=== PATIENT | female | born 1990 | race Caucasian/White ===

== ENCOUNTER 2017-08-30 17:44 | Emergency (ER) | payer BC, OTHER ==
[2017-08-30] MEDS ORDERED: Omeprazole CAP* 20 MG PO ONE (21:42)
--- NOTE | 2017-08-30 21:45 | UC ---
Abdominal Pain Female HPI - HPI Summary HPI Summary: 3 to 4 week history of epigastric discomfort with awareness of heartburn and occasional dysphagia. Getting marginal relief from use of an antacid. Began vomiting about 5 minutes post meals, worse if she has a high fluid intake with her meal. Drinks Monster caffeine and taurine drinks regularly. Occasional alcohol but none recently. Symptoms began after a flare of her asthma, when she began use of nasal fluticasone. No history of ulcer. No weight loss. Normal stools. - History of Current Complaint Chief Complaint: UCGI Stated Complaint: CHEST PAIN,VOMITING Time Seen by Provider: 08/30/17 21:25 Hx Obtained From: Patient Onset/Duration: Gradual Onset, Lasting Weeks - 3-4 Timing: Intermittent Episodes Lasting: - hours Severity Initially: Moderate Severity Currently: Moderate Pain Intensity: 7 Location: Epigastric Radiates to: Other - bilateral lower rib cage azul. Character: Aching, Burning Aggravating Factor(s): Food Alleviating Factor(s): Antacids Associated Signs and Symptoms: Positive: Nausea, Vomiting Allergies/Adverse Reactions: Allergies Allergy/AdvReac Type Severity Reaction Status Date / Time amoxicillin [From Augmentin] Allergy Diarrhea Verified 08/30/17 17:55 azithromycin [From Zithromax] Allergy See Comment Verified 08/30/17 17:55 clavulanic acid Allergy Diarrhea Verified 08/30/17 17:55 [From Augmentin] lactose Allergy GI Upset Verified 08/30/17 17:55 latex Allergy Rash Verified 08/30/17 17:55 vinyl gloves Allergy Rash Uncoded 08/30/17 17:55 Home Medications: Home Medications ARIPiprazole TAB* [Abilify TAB*] 10 mg PO DAILY 08/30/17 [History Confirmed ] Albuterol inh POWDER (NF) [Proair Respiclick] 2 puff IN Q6H PRN 08/30/17 [ History Confirmed 08/30/17] Cetirizine* [ZyrTEC 10 MG TAB*] 10 mg PO DAILY 08/30/17 [History Confirmed 08/30] Ethinyl Estradiol/Drospirenone [Kacey 28 Tablet] 1 each PO DAILY 08/30/17 [ History Confirmed 08/30/17] Fluticasone/Vilanterol [Breo Ellipta 200-25 Mcg INH] 1 each IH DAILY 08/30/17 [ History Confirmed 08/30/17] Fluvoxamine (NF) [Luvox (NF)] 300 mg PO DAILY 08/30/17 [History Confirmed ] LORazepam TAB(*) [Ativan 1 MG TAB (*)] 1 mg PO TID PRN 08/30/17 [History Confirmed 08/30/17] Levothyroxine TAB* [Synthroid TAB*] 150 mcg PO DAILY 08/30/17 [History Confirmed 08/30/17] OXcarbazepine TAB(*) [Trileptal 300 mg TAB(*)] 600 mg PO BID 08/30/17 [History Confirmed 08/30/17] Thyroid,Pork [[place] Thyroid] 1 tab PO DAILY 08/30/17 [History Confirmed ] PMH/Surg Hx/FS Hx/Imm Hx Previously Healthy: No - bipolar disorder, OCD, panic disorder. Endocrine History: Hypothyroidism, Other - obesity Other Endocrine History: obesity Respiratory History: Asthma Psychological History: Anxiety, Bipolar Disorder - Surgical History Surgical History: None - Family History Known Family History: Positive: Unknown - does not know father's side; mother is living and well - Social History Occupation: Employed Full-time - [employer] Lives: Alone Alcohol Use: Rare Substance Use Type: None Smoking Status (MU): Never Smoked Tobacco Review of Systems Constitutional: Negative Skin: Negative Eyes: Negative ENT: Negative Respiratory: Other - asthma, with 3x per week use of albuterol. Worse with living in an apartment where she gets smoke exposure from another tenant. Cardiovascular: Negative Gastrointestinal: Abdominal Pain, Vomiting Genitourinary: Negative Motor: Negative Neurovascular: Negative Musculoskeletal: Negative Neurological: Negative Psychological: Anxious Is Patient Immunocompromised?: No All Other Systems Reviewed And Are Negative: Yes Physical Exam Triage Information Reviewed: Yes Appearance: Pain Distress - none at time of exam, Obese, Other: - mildly anxious Vital Signs: Initial Vital Signs Temp 98.1 F 08/30/17 17:45 Pulse 102 08/30/17 17:45 Resp 14 08/30/17 17:45 BP 138/91 08/30/17 17:45 Pulse Ox 98 08/30/17 17:45 Eyes: Positive: Conjunctiva Clear ENT: Positive: Pharynx normal Neck: Positive: Supple, Nontender Respiratory: Positive: Lungs clear, Normal breath sounds Cardiovascular: Positive: RRR, No Murmur Abdomen Description: Positive: No Organomegaly, Soft. Negative: CVA Tenderness (R), CVA Tenderness (L), Guarding Musculoskeletal Exam: Normal Neurological: Positive: Alert, Muscle Tone Normal Psychological Exam: Other - mildly anxious, but appropriate, with good eye contact. Skin Exam: Normal Abd Pain Female Course/Dx - Course Course Of Treatment: omeprrazole for suspected gastritis, possible ulcer. - Differential Dx/Diagnosis Provider Diagnoses: gastritis Discharge - Sign-Out/Discharge Documenting (check all that apply): Discharge - Discharge Plan Condition: Stable Disposition: HOME Prescriptions: Omeprazole CAP* [Prilosec CAP* 20 MG] 20 mg PO DAILY #30 cap. Patient Education Materials: Gastritis (ED) Referrals: Luzma Carranza MD [Primary Care Provider] - Additional Instructions: Please follow up with your primary care doctor in 2 weeks. If you are not responding to the medication, further testing might be needed. Ensure that you take the omeprazole about 20 to 30 minutes before a meal. - Billing Disposition and Condition Condition: STABLE Disposition: HOME
[2017-08-30 21:58] VITALS: BP 143/95
== END 2017-08-30 21:58 | disposition home or self-care (01) ==
LOC: UCCORT 17:44
DX: K29.70 Gastritis, unspecified, without bleeding (principal); Z88.1 Allergy status to other antibiotic agents; Z91.040 Latex allergy status; Z91.011 Allergy to milk products; Z88.0 Allergy status to penicillin; Z88.8 Allergy status to other drugs, medicaments and biological substances; Z91.09 Other allergy status, other than to drugs and biological substances; F31.9 Bipolar disorder, unspecified; F42.9 Obsessive-compulsive disorder, unspecified; F41.0 Panic disorder [episodic paroxysmal anxiety]; E03.9 Hypothyroidism, unspecified; J45.909 Unspecified asthma, uncomplicated
CPT/HCPCS: 99202; A9270-GY; G0463

== ENCOUNTER 2018-02-02 12:16 | Emergency (ER) | payer BC, OTHER ==
[2018-02-02 14:11] VITALS: BP 141/88
--- NOTE | 2018-02-02 14:20 | UC ---
Throat Pain/Nasal Alejo HPI - HPI Summary HPI Summary: Pt c/o sinus congestion, pressure, pain and fever X 7 days. Pt now c/o bloody mucus and worsening malaise. - History of Current Complaint Chief Complaint: UCGeneralIllness Stated Complaint: SINUSES Time Seen by Provider: 02/02/18 14:08 Hx Obtained From: Patient Hx Last Menstrual Period: 01/28/18 Onset/Duration: Gradual Onset, Lasting Days, Still Present Severity: Moderate Pain Intensity: 7 Cough: Nonproductive Associated Signs & Symptoms: Positive: Sinus Discomfort, Nasal Discharge, Fever Related History: Seasonal Allergies - Epiglottits Risk Factors Epiglottis Risk Factors: Negative - Allergies/Home Medications Allergies/Adverse Reactions: Allergies Allergy/AdvReac Type Severity Reaction Status Date / Time amoxicillin [From Augmentin] Allergy Diarrhea Verified 02/02/18 14:11 azithromycin [From Zithromax] Allergy See Comment Verified 02/02/18 14:11 clavulanic acid Allergy Diarrhea Verified 02/02/18 14:11 [From Augmentin] lactose Allergy GI Upset Verified 02/02/18 14:11 latex Allergy Rash Verified 02/02/18 14:11 vinyl gloves Allergy Rash Uncoded 02/02/18 14:11 PMH/Surg Hx/FS Hx/Imm Hx Previously Healthy: Yes - Surgical History Surgical History: Yes Surgery Procedure, Year, and Place: gallbladder removed 10/25/17 - Family History Known Family History: Positive: Unknown - does not know father's side; mother is living and well - Social History Occupation: Employed Full-time Lives: With Family Alcohol Use: Rare Substance Use Type: None Smoking Status (MU): Never Smoked Tobacco Have You Smoked in the Last Year: No Review of Systems Constitutional: Fever, Chills, Fatigue Skin: Negative Eyes: Negative ENT: Sinus Congestion, Sinus Pain/Tenderness Respiratory: Cough Cardiovascular: Negative Gastrointestinal: Negative Genitourinary: Dysuria Motor: Negative Neurovascular: Negative Musculoskeletal: Myalgia Neurological: Headache Psychological: Negative Is Patient Immunocompromised?: No All Other Systems Reviewed And Are Negative: Yes Physical Exam Triage Information Reviewed: Yes Appearance: Ill-Appearing Vital Signs: Initial Vital Signs Temp 97.6 F 02/02/18 14:06 Pulse 88 02/02/18 14:06 Resp 18 02/02/18 14:06 BP 141/88 02/02/18 14:06 Pulse Ox 100 02/02/18 14:06 Vital Signs Reviewed: Yes Eye Exam: Normal ENT: Positive: Nasal congestion, Sinus tenderness Dental Exam: Normal Neck exam: Normal Respiratory Exam: Normal Cardiovascular Exam: Normal Abdominal Exam: Normal Musculoskeletal Exam: Normal Neurological Exam: Normal Psychological Exam: Normal Skin Exam: Normal Throat Pain/Nasal Course/Dx - Differential Dx/Diagnosis Differential Diagnosis/HQI/PQRI: Influenza, Sinusitis, URI Provider Diagnoses: sinusitis Discharge - Sign-Out/Discharge Documenting (check all that apply): Patient Departure All imaging exams completed and their final reports reviewed: No Studies - Discharge Plan Condition: Stable Disposition: HOME Prescriptions: DOXYcycline CAP(*) [DOXYcycline 100MG CAP(*)] 100 mg PO Q12H #20 cap Patient Education Materials: Sinusitis (ED) Referrals: Luzma Carranza MD [Primary Care Provider] - If Needed - Billing Disposition and Condition Condition: STABLE Disposition: Home - Attestation Statements Provider Attestation: I was available for consult. This patient was seen by the ADAIR. The patient was not presented to, seen by, or examined by me. -Shaka
== END 2018-02-02 14:28 | disposition home or self-care (01) ==
LOC: UCCORT 12:16
DX: J32.9 Chronic sinusitis, unspecified (principal); Z88.3 Allergy status to other anti-infective agents
CPT/HCPCS: 99211; G0463

== ENCOUNTER 2018-05-09 13:04 | Emergency (ER) | payer BC ==
[2018-05-09 14:41] VITALS: BP 135/82
--- NOTE | 2018-05-09 14:46 | UC ---
Throat Pain/Nasal Alejo HPI - HPI Summary HPI Summary: Pt presents with c/o nasal congestion, sinus pressure and pain, productive cough ax 2 weeks. - History of Current Complaint Stated Complaint: VOMITING, SINUSES Time Seen by Provider: 05/09/18 14:31 Hx Obtained From: Patient Hx Last Menstrual Period: 05/06/18 ?: No Onset/Duration: Gradual Onset, Lasting Weeks, Still Present Severity: Moderate Pain Intensity: 8 Cough: Productive Associated Signs & Symptoms: Positive: Sinus Discomfort - Epiglottits Risk Factors Epiglottis Risk Factors: Negative - Allergies/Home Medications Allergies/Adverse Reactions: Allergies Allergy/AdvReac Type Severity Reaction Status Date / Time amoxicillin [From Augmentin] Allergy Diarrhea Verified 05/09/18 14:34 azithromycin [From Zithromax] Allergy See Comment Verified 05/09/18 14:34 clavulanic acid Allergy Diarrhea Verified 05/09/18 14:34 [From Augmentin] lactose Allergy GI Upset Verified 05/09/18 14:34 latex Allergy Rash Verified 05/09/18 14:34 prednisone Allergy See Comment Verified 05/09/18 14:34 vinyl gloves Allergy Rash Uncoded 05/09/18 14:34 PMH/Surg Hx/FS Hx/Imm Hx Previously Healthy: Yes - Surgical History Surgical History: Yes Surgery Procedure, Year, and Place: gallbladder removed 10/25/17 - Family History Known Family History: Positive: Unknown - does not know father's side; mother is living and well - Social History Occupation: Employed Full-time Lives: With Family Alcohol Use: Occasionally Substance Use Type: None Smoking Status (MU): Never Smoked Tobacco Type: eCigarettes Amount Used/How Often: 60ml bottle per week for vape Have You Smoked in the Last Year: Yes - vape Review of Systems All Other Systems Reviewed And Are Negative: Yes Constitutional: Positive: Chills Skin: Positive: Negative Eyes: Positive: Negative ENT: Positive: Sinus Congestion, Sinus Pain/Tenderness Respiratory: Positive: Cough Cardiovascular: Positive: Negative Gastrointestinal: Positive: Negative Genitourinary: Positive: Negative Motor: Positive: Negative Neurovascular: Positive: Negative Musculoskeletal: Positive: Negative Neurological: Positive: Headache Psychological: Positive: Negative Is Patient Immunocompromised?: No Physical Exam Triage Information Reviewed: Yes Appearance: Well-Appearing Vital Signs: Initial Vital Signs Temp 98.2 F 05/09/18 14:35 Pulse 77 12/27/18 14:35 Resp 17 05/09/18 14:35 BP 135/82 05/09/18 14:35 Pulse Ox 100 05/09/18 14:35 Vital Signs Reviewed: Yes Eye Exam: Normal ENT: Positive: Nasal congestion, Sinus tenderness Dental Exam: Normal Neck exam: Normal Neck: Positive: Supple, Nontender, No Lymphadenopathy Respiratory Exam: Normal Cardiovascular Exam: Normal Musculoskeletal Exam: Normal Neurological Exam: Normal Psychological Exam: Normal Skin Exam: Normal Throat Pain/Nasal Course/Dx - Differential Dx/Diagnosis Differential Diagnosis/HQI/PQRI: Influenza, Sinusitis, URI Provider Diagnosis: Sinusitis Discharge - Sign-Out/Discharge Documenting (check all that apply): Patient Departure All imaging exams completed and their final reports reviewed: No Studies - Discharge Plan Condition: Stable Disposition: HOME Prescriptions: DOXYcycline CAP(*) [DOXYcycline 100MG CAP(*)] 100 mg PO Q12H #20 cap Patient Education Materials: Sinusitis (ED) Referrals: Luzma Carranza MD [Primary Care Provider] - If Needed - Billing Disposition and Condition Condition: STABLE Disposition: Home
== END 2018-05-09 14:55 | disposition home or self-care (01) ==
LOC: UCCORT 13:04
DX: J32.9 Chronic sinusitis, unspecified (principal); Z88.0 Allergy status to penicillin; Z88.1 Allergy status to other antibiotic agents; Z88.8 Allergy status to other drugs, medicaments and biological substances
CPT/HCPCS: 99212; G0463

== ENCOUNTER 2018-07-03 15:44 | Emergency (ER) | payer BC ==
[2018-07-03 17:54] VITALS: BP 151/83
[2018-07-03] MEDS ORDERED: Ondansetron ODT TAB* 4 MG PO ONE (18:03)
--- NOTE | 2018-07-03 18:11 | UC ---
Abdominal Pain Female HPI - HPI Summary HPI Summary: 27 yo female with the onset of n/v today. no abd pain, no f/c, no UTI symptoms diarrhea 1-2 x - History of Current Complaint Chief Complaint: UCGI Stated Complaint: VOMITING Time Seen by Provider: 07/03/18 17:43 Hx Obtained From: Patient Hx Last Menstrual Period: [id number] Onset/Duration: Sudden Onset, Lasting Hours Severity Initially: Mild Severity Currently: Mild Pain Intensity: 0 Pain Scale Used: 0-10 Numeric Associated Signs and Symptoms: Positive: Nausea, Vomiting - x2-3, Diarrhea - x1 Allergies/Adverse Reactions: Allergies Allergy/AdvReac Type Severity Reaction Status Date / Time amoxicillin [From Augmentin] Allergy Diarrhea Verified 07/03/18 17:55 azithromycin [From Zithromax] Allergy See Comment Verified 07/03/18 17:55 clavulanic acid Allergy Diarrhea Verified 07/03/18 17:55 [From Augmentin] lactose Allergy GI Upset Verified 07/03/18 17:55 latex Allergy Rash Verified 07/03/18 17:55 prednisone Allergy See Comment Verified 07/03/18 17:55 vinyl gloves Allergy Rash Uncoded 07/03/18 17:55 PMH/Surg Hx/FS Hx/Imm Hx Previously Healthy: Yes Respiratory History: Asthma Psychological History: Anxiety, Bipolar Disorder - Surgical History Surgical History: Yes Surgery Procedure, Year, and Place: gallbladder removed 10/25/17 - Family History Known Family History: Positive: Unknown - does not know father's side; mother is living and well - Social History Alcohol Use: Occasionally Substance Use Type: None Smoking Status (MU): Never Smoked Tobacco Type: eCigarettes Amount Used/How Often: 60ml bottle per week for vape Have You Smoked in the Last Year: Yes - vape Review of Systems All Other Systems Reviewed And Are Negative: Yes Constitutional: Positive: Negative Skin: Positive: Negative Eyes: Positive: Negative ENT: Positive: Negative Respiratory: Positive: Negative Cardiovascular: Positive: Negative Gastrointestinal: Positive: Vomiting, Diarrhea, Nausea Genitourinary: Positive: Negative Motor: Positive: Negative Neurovascular: Positive: Negative Musculoskeletal: Positive: Negative Neurological: Positive: Negative Psychological: Positive: Negative Physical Exam Triage Information Reviewed: Yes Appearance: Well-Appearing, No Pain Distress, Well-Nourished Vital Signs: Initial Vital Signs Temp 98.2 F 07/03/18 17:50 Pulse 80 07/03/18 17:50 Resp 16 07/03/18 17:50 BP 151/83 07/03/18 17:50 Pulse Ox 100 07/03/18 17:50 Vital Signs Reviewed: Yes Eyes: Positive: Conjunctiva Clear ENT: Negative: Nasal congestion, Nasal drainage, Trismus, Muffled voice, Dental tenderness Neck: Positive: Supple, Nontender, No Lymphadenopathy Respiratory: Positive: Lungs clear, Normal breath sounds, No respiratory distress, No accessory muscle use Cardiovascular: Positive: RRR, No Murmur, Pulses Normal Abdomen Description: Positive: Nontender, No Organomegaly, Soft. Negative: CVA Tenderness (R), CVA Tenderness (L) Bowel Sounds: Positive: Present Musculoskeletal: Positive: ROM Intact, No Edema Neurological: Positive: Alert Psychological Exam: Normal Skin Exam: Normal Re-Evaluation - Re-Evaluation First Eval Re-Evaluation Time: 18:27 Change: Improved - much better Abd Pain Female Course/Dx - Differential Dx/Diagnosis Provider Diagnosis: Gastroenteritis Discharge - Sign-Out/Discharge Documenting (check all that apply): Patient Departure All imaging exams completed and their final reports reviewed: No Studies - Discharge Plan Condition: Stable Disposition: HOME Patient Education Materials: Gastroenteritis (ED) Forms: *Work Release Referrals: Luzma Carranza MD [Primary Care Provider] - 2 Days (if not better) Additional Instructions: use your zofran - Billing Disposition and Condition Condition: STABLE Disposition: Home
== END 2018-07-03 18:43 | disposition home or self-care (01) ==
LOC: UCCORT 15:44
DX: K52.9 Noninfective gastroenteritis and colitis, unspecified (principal); J45.909 Unspecified asthma, uncomplicated; Z88.0 Allergy status to penicillin; Z88.1 Allergy status to other antibiotic agents; Z88.8 Allergy status to other drugs, medicaments and biological substances; Z91.09 Other allergy status, other than to drugs and biological substances; Z91.040 Latex allergy status; Z91.011 Allergy to milk products
CPT/HCPCS: 99212; A9270-GY; G0463

== ENCOUNTER 2018-07-11 12:31 | Emergency (ER) | payer BC ==
[2018-07-11 13:48] VITALS: BP 135/79
--- NOTE | 2018-07-11 14:02 | UC ---
General HPI - HPI Summary HPI Summary: Rema presented here on the with some nausea and vomiting. She was given Zofran and felt better and discharged with a diagnosis of gastroenteritis. She had leftover Zofran from a previous surgery and with it was recommended she take that. She has taken at a couple of times in the interim but today felt worse and took some. And also she has developed a right sided frontal feeling of fullness and pain which she identifies as a sinus infection. She denies fever or chills that she is aware of and the diarrhea has cleared up. - History of Current Complaint Chief Complaint: UCGeneralIllness Stated Complaint: RT SIDE SINUS PRESSURE Time Seen by Provider: 07/11/18 13:39 Hx Obtained From: Patient Hx Last Menstrual Period: 07/05/18 Onset/Duration: Gradual Onset Onset Severity: Moderate Current Severity: Moderate Pain Intensity: 7 Related Hx: Recent Illness - Allergy/Home Medications Allergies/Adverse Reactions: Allergies Allergy/AdvReac Type Severity Reaction Status Date / Time amoxicillin [From Augmentin] Allergy Diarrhea Verified 07/11/18 13:46 azithromycin [From Zithromax] Allergy See Comment Verified 07/11/18 13:46 clavulanic acid Allergy Diarrhea Verified 07/11/18 13:46 [From Augmentin] lactose Allergy GI Upset Verified 07/11/18 13:46 latex Allergy Rash Verified 07/11/18 13:46 prednisone Allergy See Comment Verified 07/11/18 13:46 vinyl gloves Allergy Rash Uncoded 07/11/18 13:46 Home Medications: Home Medications Ondansetron ODT TAB* [Zofran 4 MG Odt TAB*] 4 mg PO Q6H PRN 07/11/18 [History Confirmed 07/11/18] PMH/Surg Hx/FS Hx/Imm Hx Previously Healthy: Yes - Surgical History Surgical History: Yes Surgery Procedure, Year, and Place: gallbladder removed 10/25/17 - Family History Known Family History: Positive: Unknown - does not know father's side; mother is living and well - Social History Alcohol Use: Occasionally Substance Use Type: None Smoking Status (MU): Never Smoked Tobacco Type: eCigarettes Amount Used/How Often: 60ml bottle per week for vape Have You Smoked in the Last Year: - vape Review of Systems All Other Systems Reviewed And Are Negative: Yes Constitutional: Positive: Negative Skin: Positive: Negative ENT: Positive: Negative Respiratory: Positive: Negative Cardiovascular: Positive: Negative Gastrointestinal: Positive: Vomiting, Nausea Genitourinary: Positive: Negative Neurological: Positive: Headache Physical Exam - Summary Physical Exam Summary: She is nontoxic in appearance with stable vital signs. Triage Information Reviewed: Yes Appearance: Well-Appearing Vital Signs: Initial Vital Signs Temp 97.7 F 07/11/18 13:43 Pulse 92 07/11/18 13:43 Resp 17 07/11/18 13:43 BP 135/79 07/11/18 13:43 Pulse Ox 99 07/11/18 13:43 Vital Signs Reviewed: Yes Eye Exam: Normal ENT: Positive: Sinus tenderness - right frontal with poor transillumination Neck exam: Normal Neck: Positive: Supple, Nontender, No Lymphadenopathy. Negative: Nuchal Rigidity Respiratory Exam: Normal Cardiovascular Exam: Normal Abdominal Exam: Normal Neurological Exam: Normal Course/Dx - Course Course Of Treatment: Rema tells me that the [employer] works for her and requests a prescription at this time. She reports that she got diarrhea with Augmentin. It is listed as one of her allergies but she states she's never taken amoxicillin by itself. She is willing to try it. She does not think she is she is on her period now. She is willing to try the medications at home. - Diagnoses Provider Diagnosis: Sinusitis Discharge - Sign-Out/Discharge Documenting (check all that apply): Patient Departure All imaging exams completed and their final reports reviewed: Yes - Discharge Plan Condition: Stable Disposition: HOME Patient Education Materials: Sinusitis (ED) Referrals: Luzma Carranza MD [Primary Care Provider] - - Billing Disposition and Condition Condition: STABLE Disposition: Home
--- NOTE | 2018-07-12 12:02 | UC ---
- Progress Note Progress Note: see nurses note stop amoxicillin doxy eRxed recheck if not improving Course/Dx - Diagnoses Provider Diagnoses: Sinusitis Discharge - Sign-Out/Discharge Documenting (check all that apply): Post-Discharge Follow Up All imaging exams completed and their final reports reviewed: Yes - Discharge Plan Condition: Stable Disposition: HOME Prescriptions: DOXYcycline CAP(*) [DOXYcycline 100MG CAP(*)] 100 mg PO BID #14 cap Ondansetron ODT TAB* [Zofran Odt TAB*] 4 mg PO Q6H PRN #20 tab.odt PRN Reason: Nausea/Vomiting Patient Education Materials: Sinusitis (ED) Forms: *Work Release Referrals: Luzma Carranza MD [Primary Care Provider] - - Billing Disposition and Condition Condition: STABLE Disposition: Home
== END 2018-07-11 14:15 | disposition home or self-care (01) ==
LOC: UCCORT 12:31
DX: J32.9 Chronic sinusitis, unspecified (principal); R11.2 Nausea with vomiting, unspecified; Z88.0 Allergy status to penicillin; Z88.1 Allergy status to other antibiotic agents; Z91.011 Allergy to milk products; Z91.040 Latex allergy status; Z88.8 Allergy status to other drugs, medicaments and biological substances; Z91.09 Other allergy status, other than to drugs and biological substances
CPT/HCPCS: 99212; G0463

== ENCOUNTER 2018-08-03 17:35 | Emergency (ER) | payer BC ==
[2018-08-03 18:12] VITALS: BP 134/83
[2018-08-03] MEDS ORDERED: DOXYcycline CAP(*) 100 MG PO ONE (18:34)
--- NOTE | 2018-08-03 18:34 | UC ---
General HPI - HPI Summary HPI Summary: PT IS C/O SINUS PAIN AND DRAINAGE WITH SOME BLOOD X 3 DAYS. SHE HAS A HX OF RECURRENT SINUSITIS AND THIS FEELS THAT SAME. SHE HAS A POST NASAL DRIP THAT GAGS HER AND EVEN VOMITED ONCE A RESULT. SHE RECENTLY STARTED USING A CPAP WELL. + COUGH. SHE IS ON ALLERGY MEDICATIONS AND FLONASE WHICH ARE NOT HELPING. - History of Current Complaint Chief Complaint: UCGeneralIllness Stated Complaint: VOMITING, SINUS PRESSURE Time Seen by Provider: 08/03/18 18:14 Hx Obtained From: Patient Hx Last Menstrual Period: 07/27/18 Onset/Duration: Gradual Onset Timing: Constant Pain Intensity: 5 Associated Signs & Symptoms: Positive: Cough - Allergy/Home Medications Allergies/Adverse Reactions: Allergies Allergy/AdvReac Type Severity Reaction Status Date / Time amoxicillin [From Augmentin] Allergy Diarrhea Verified 07/11/18 13:46 azithromycin [From Zithromax] Allergy See Comment Verified 07/11/18 13:46 clavulanic acid Allergy Diarrhea Verified 07/11/18 13:46 [From Augmentin] lactose Allergy GI Upset Verified 07/11/18 13:46 latex Allergy Rash Verified 07/11/18 13:46 prednisone Allergy See Comment Verified 07/11/18 13:46 vinyl gloves Allergy Rash Uncoded 07/11/18 13:46 Home Medications: Home Medications Fluticasone/Vilanterol MDI(NF) [Breo Ellipta MDI (NF)] 1 puff INH DAILY [History Confirmed 08/03/18] PMH/Surg Hx/FS Hx/Imm Hx - Additional Past Medical History Additional PMH: RECURRENT SINUSITIS, ALLERGIES Endocrine History: Thyroid Disease Psychological History: Bipolar Disorder, Other - ocd - Surgical History Surgical History: Yes Surgery Procedure, Year, and Place: gallbladder removed 10/25/17 - Family History Known Family History: Positive: Unknown - does not know father's side; mother is living and well - Social History Alcohol Use: Weekly Substance Use Type: None Smoking Status (MU): Never Smoked Tobacco Type: eCigarettes Amount Used/How Often: 60ml bottle per week for vape Have You Smoked in the Last Year: - vape Review of Systems All Other Systems Reviewed And Are Negative: Yes ENT: Positive: Nasal Discharge, Sinus Congestion, Sinus Pain/Tenderness Respiratory: Positive: Cough Gastrointestinal: Positive: Vomiting - X1 FROM POST NASAL DRIP Physical Exam Triage Information Reviewed: Yes Appearance: Well-Appearing Vital Signs: Initial Vital Signs Temp 97.9 F 08/03/18 18:07 Pulse 90 08/03/18 18:07 Resp 18 08/03/18 18:07 BP 134/83 08/03/18 18:07 Pulse Ox 100 08/03/18 18:07 Vital Signs Reviewed: Yes Eyes: Positive: Conjunctiva Clear ENT: Positive: Pharynx normal, Nasal congestion, Nasal drainage - YELLOW, TMs normal, Sinus tenderness - MAXILLARY Neck: Positive: Supple, Nontender, No Lymphadenopathy Respiratory: Positive: Lungs clear, Normal breath sounds, No respiratory distress Cardiovascular: Positive: RRR, No Murmur Abdomen Description: Positive: Nontender, No Organomegaly, Soft Bowel Sounds: Positive: Present Musculoskeletal: Positive: ROM Intact Neurological: Positive: Alert Psychological: Positive: Age Appropriate Behavior Skin Exam: Normal Course/Dx - Differential Dx - Multi-Symptom Differential Diagnoses: Other - HX OF CHRONIC RECURRENT SINUSITIS. THIS IS THE SAME AND IS FAILING CHRONIC TX THUS I WILL TX DESPITE DURATION OF CURRENT S/S' S. I SUGGEST PT F/U WITH HER PCP AND REQUENT AN ENT F/U. - Diagnoses Provider Diagnosis: Sinusitis Discharge - Sign-Out/Discharge Documenting (check all that apply): Patient Departure All imaging exams completed and their final reports reviewed: No Studies - Discharge Plan Condition: Stable Disposition: HOME Prescriptions: DOXYcycline CAP(*) [DOXYcycline 100MG CAP(*)] 100 mg PO BID 10 Days #20 cap Patient Education Materials: Sinusitis (ED) Referrals: Luzma Carranza MD [Primary Care Provider] - 7 Days - Billing Disposition and Condition Condition: STABLE Disposition: Home - Attestation Statements Provider Attestation: Per institutional requirements, I have reviewed the chart, however, I was not consulted specifically or made aware of this patient by the midlevel provider. I did not personally evaluate, interact with , or disposition this patient.
== END 2018-08-03 18:46 | disposition home or self-care (01) ==
LOC: UCCORT 17:35
DX: J32.9 Chronic sinusitis, unspecified (principal); Z88.0 Allergy status to penicillin; Z88.1 Allergy status to other antibiotic agents; Z91.040 Latex allergy status; Z91.011 Allergy to milk products; Z91.09 Other allergy status, other than to drugs and biological substances; Z88.8 Allergy status to other drugs, medicaments and biological substances
CPT/HCPCS: 99212; A9270-GY; G0463